=== PATIENT | male | born 1955 | race Caucasian/White ===

== ENCOUNTER → 2016-10-01 | Outpatient (CLI) | payer MEDICARE ==
[~2016-10-01] MED LIST: ALDACTONE 25MG25 M1 PO; AMBIEN CR 12.12.5 MG PO; AMBIEN10 MG PO; ANTIVERT 25MG25 MG PO; ANUSOL SUP1 SUPP.REC RC; ASPI325T6 PO; ASPIRIN 81M81 MG/TA2 PO; ASPIRIN E.C. 8181 MG PO; AUGMENTIN XR 101 TER PO; CORDARONE200 MG/TAB PO; COUMADIN 22.5 MG/TAB PO; COUMADIN 2MG2 MG/TAB PO; COUMADIN 3MG3 MG/TAB PO; COUMADIN 5MG5 MG/TAB PO; COUMADIN1 MG PO; COUMADIN3 MG PO; COUMADIN4 MG PO; COUMADIN5 MG PO; DIGOXIN0.125 MG PO; ENALAPRIL20 MG PO; FAMVIR 500500 MG/TAB PO; FUROSEMIDE; HUMALOG PEN100 U/ML SC; IMDUR 30MG30 MG/TAB PO; Imdur PO; KLOR-CON 1010 MEQ PO; LANTUS100 U/ML SC; LASIX 20MG TABL20 MG PO; LASIX 40MG TABL40 MG PO; LASIX20 MG PO; LEVAQUIN 5500 MG/TA1 PO; LEVEMIR100 U/ML SC; LIPITOR 40MG TA40 MG PO; MAGNESIUM250 M1 PO; METOLAZONE5 MG PO; METOPROLOL50 MG PO; NITROGLYCERIN0.4 MG SL; NOVOLIN R100 U/ML IJ; NOVOLOG FLEX100 U/ML SC; PACERONE200 MG PO; PREDNISONE20 MG PO; PRIL40 PO; PRILOSEC 20MG20 MG PO; PROAIR HFA0.09 MG/AC IH; ROCEPHIN 2GM VIAL21 IV; RT SPIRIVA18 MCG IH; SPIRIVA18 MCG IH; TOPROL XL 50MG50 MG PO; TOPROL XL100 MG PO; ULORIC40 MG PO; ULORIC80 MG PO; VASOTEC 10M10 MG/TAB PO; VASOTEC 5MG5 MG/TAB PO; VIAGRA100 MG PO; WARFARIN SOD5 MG PO; XANAX .25M0.25 MG/TA PO; ZAROXOLYN5 MG PO; ZETIA 10MG TAB10 MG PO; ZITHROMAX500 M2 PO; ZOCOR 40MG40 MG PO; ZOCOR40 MG PO; ZOLPIDEM10 MG PO
== END ==
LOC: COL.RAD 08:43
DX: I51.7 Cardiomegaly (principal); I48.2 Chronic atrial fibrillation

== ENCOUNTER 2017-08-14 09:57 | Observation (INO) | payer MEDICARE ==
[~2017-08-14] VITALS: Ht 180.3 cm; Wt 118.0 kg
[2017-08-14 10:54] LABS: BASO % 0.7 % (0.0-2.0); EOS # 0.1 (0.0-0.7); EOS % 1.1 % (0-4.0); GRAN # 3.2 (1.4-6.5); GRAN % 69.3 % (42.2-75.2); HEMATOCRIT 45.5 % (42.0-52.0); HEMOGLOBIN 15.1 g/dl (13.5-18.0); LYMPH # 0.7 (1.2-3.4); LYMPH % 14.8 % (20.0-51.0); MEAN CELL VOLUME 91 fl (80.0-100.0); MEAN CORPUSCULAR HEMOGLOBIN 30 pg (27.0-31.0); MEAN CORPUSCULAR HGB CONC 33 g/dl (33.0-37.0); MEAN PLATELET VOLUME 11.1 fl (7.4-10.4); MONO # 0.6 (0.1-0.6); MONO % 13.9 % (1.7-9.3); PLATELET COUNT 101 K/mm3 (130-400); REDCELL DISTRIBUTION WIDTH-CV 15.9 % (11.5-14.5)
[2017-08-14 10:57] LABS: INFLUENZA A NEGATIVE; INFLUENZA B NEGATIVE
[2017-08-14 11:05] LABS: CREATININE, serum 1.49 mg/dL (0.66-1.25); POTASSIUM 3.3 mmol/L (3.4-5.0); TOTAL PROTEIN 6.9 gm/dL (6.4-8.2)
[2017-08-14 11:29] LABS: TROPONIN-I 0.044 ng/mL (0.000-0.034)
[2017-08-14 11:43] LABS: INR 2.1 (0.8-3.0); PROTHROMBIN TIME 24.1 SECONDS (9.7-12.8)
[2017-08-14 15:54] VITALS: BP 124/77; PULSE 60; TEMP 98.2
[2017-08-14 16:02] VITALS: BP 124/77; PULSE 60; TEMP 98.2
[2017-08-14 18:57] VITALS: BP 12/77; PULSE 61; TEMP 97.7
[2017-08-15 04:20] VITALS: BP 124/55; PULSE 95; TEMP 98
[2017-08-15 06:59] LABS: BASO % 0.5 % (0.0-2.0); EOS # 0.1 (0.0-0.7); GRAN # 2.4 (1.4-6.5); GRAN % 58.5 % (42.2-75.2); HEMATOCRIT 43.2 % (42.0-52.0); HEMOGLOBIN 14.1 g/dl (13.5-18.0); LYMPH # 1.1 (1.2-3.4); LYMPH % 27.8 % (20.0-51.0); MEAN CELL VOLUME 92 fl (80.0-100.0); MEAN CORPUSCULAR HEMOGLOBIN 30 pg (27.0-31.0); MEAN CORPUSCULAR HGB CONC 33 g/dl (33.0-37.0); MEAN PLATELET VOLUME 11.3 fl (7.4-10.4); MONO # 0.5 (0.1-0.6); PLATELET COUNT 90 K/mm3 (130-400); REDCELL DISTRIBUTION WIDTH-CV 15.7 % (11.5-14.5)
[2017-08-15 07:37] LABS: CALCIUM 8.6 mg/dL (8.4-10.2); CREATININE, serum 1.47 mg/dL (0.66-1.25)
[2017-08-15 08:00] VITALS: BP 99/50; PULSE 61; TEMP 97.6
[2017-08-15 08:01] LABS: POTASSIUM 2.8 mmol/L (3.4-5.0)
[2017-08-15] MEDS ORDERED: DOXYCYCLINE 10100 MG PO (09:49)
== END 2017-08-15 11:21 | disposition home or self-care (01) ==
LOC: COL.ER 09:57 → MEDICAL 12:11
PROVIDERS: Emergency Medicine; Physician Assistant
DX: I13.0 Hypertensive heart and chronic kidney disease with heart failure and stage 1 through stage 4 chronic kidney disease, or unspecified chronic kidney disease (principal); I50.23 Acute on chronic systolic (congestive) heart failure; J44.9 Chronic obstructive pulmonary disease, unspecified; E11.22 Type 2 diabetes mellitus with diabetic chronic kidney disease; N18.9 Chronic kidney disease, unspecified; Z79.4 Long term (current) use of insulin; J06.9 Acute upper respiratory infection, unspecified; I25.10 Atherosclerotic heart disease of native coronary artery without angina pectoris; Z95.5 Presence of coronary angioplasty implant and graft; F17.210 Nicotine dependence, cigarettes, uncomplicated; E87.6 Hypokalemia; I48.91 Unspecified atrial fibrillation; G47.33 Obstructive sleep apnea (adult) (pediatric); Z95.810 Presence of automatic (implantable) cardiac defibrillator; E78.5 Hyperlipidemia, unspecified; Z79.01 Long term (current) use of anticoagulants; Z79.82 Long term (current) use of aspirin
CPT/HCPCS: G0378; J1940

== ENCOUNTER 2018-12-14 20:43 | Observation (INO) | payer MEDICARE ==
[~2018-12-14] VITALS: Ht 182.9 cm; Wt 118.2 kg
[~2018-12-14 20:43] MED LIST changes: +DOXYCYCLINE 10100 MG PO
[2018-12-14 21:06] LABS: BASO # 0.1 (0.0-0.2); BASO % 0.6 % (0.0-2.0); EOS # 0.4 (0.0-0.7); EOS % 4.1 % (0-4.0); GRAN # 6.2 (1.4-6.5); GRAN % 59.7 % (42.2-75.2); HEMATOCRIT 47.6 % (42.0-52.0); LYMPH # 2.5 (1.2-3.4); LYMPH % 24.4 % (20.0-51.0); MEAN CELL VOLUME 92 fl (80.0-100.0); MEAN CORPUSCULAR HEMOGLOBIN 31 pg (27.0-31.0); MEAN CORPUSCULAR HGB CONC 34 g/dl (33.0-37.0); MEAN PLATELET VOLUME 10.6 fl (7.4-10.4); MONO # 1.1 (0.1-0.6); MONO % 10.8 % (1.7-9.3); PLATELET COUNT 145 K/mm3 (130-400); REDCELL DISTRIBUTION WIDTH-CV 15.1 % (11.5-14.5)
[2018-12-14 21:12] LABS: INR 2.5 (0.8-3.0); PROTHROMBIN TIME 28.2 SECONDS (9.7-12.8)
[2018-12-14 21:14] LABS: PARTIAL THROMBOPLASTIN TIME 44.5 SECONDS (26.0-37.0)
[2018-12-14 21:19] LABS: ALBUMIN 4.2 gm/dL (3.5-5.0); BILIRUBIN,TOTAL 1.1 mg/dL (0.0-1.0); CREATININE, serum 1.57 (0.66-1.25); MAGNESIUM 1.9 mg/dL (1.6-2.3); TOTAL PROTEIN 7.2 gm/dL (6.4-8.2)
[2018-12-14 21:23] LABS: POTASSIUM 2.9 mmol/L (3.4-5.0)
[2018-12-14 21:52] LABS: TROPONIN-I 0.046 ng/mL (0.000-0.035)
[2018-12-15] VITALS (15 sets, daily range): BP systolic 101–138; BP diastolic 62–89; PULSE 53–66; TEMP 97.8–98.6
--- NOTE | 2018-12-15 00:20 | NUR ---
Pt arrived to room 355, transferred via wheelchair by ED staff. Pt awake, a&o, cooperative c cares. INT patent. Tele in place. Pt oriented to room, unit policies et current POC. Questions invited et answered et pt verbalizes understanding. Denies needs at this time. Call light in reach, will continue c admit process.
[2018-12-15] MEDS ORDERED: ULORIC40 MG PO (01:42)
[2018-12-15] MEDS ORDERED: ZANTAC 300300 MG PO (01:52)
[2018-12-15 04:32] LABS: HEMOGLOBIN 14.4 g/dl (13.5-18.0); MEAN CELL VOLUME 92 fl (80.0-100.0); MEAN CORPUSCULAR HEMOGLOBIN 31 pg (27.0-31.0); MEAN CORPUSCULAR HGB CONC 34 g/dl (33.0-37.0); MEAN PLATELET VOLUME 10.3 fl (7.4-10.4); PLATELET COUNT 112 K/mm3 (130-400); RED BLOOD COUNT 4.69 M/mm3 (4.20-5.60); REDCELL DISTRIBUTION WIDTH-CV 15.3 % (11.5-14.5)
[2018-12-15 04:44] LABS: CALCIUM 8.7 mg/dL (8.4-10.2); CREATININE, serum 1.44 (0.66-1.25); POTASSIUM 3.5 mmol/L (3.4-5.0)
[2018-12-15 05:05] LABS: TROPONIN-I 0.106 ng/mL (0.000-0.035)
--- NOTE | 2018-12-15 09:30 | NUR ---
patient assessment complete. wheezing insp/exp noted in upper lobes. patient denies chest pain, SOB, numbness or tingling, no n/v. radial pulses strong bilaterally. RH IV is CDI, no fluids running. patient on room air. patient cooperative with cares. Patient has been NPO, will have lexiscan later this morning. No other needs at this time. Call light within reach.
--- NOTE | 2018-12-15 12:32 | NUR ---
patient down for lexiscan at this time.
--- NOTE | 2018-12-15 13:02 | NUR ---
SW student attended clinical rounding and met with the patient to discuss discharge planning. The patient lives in [place] by himself. The patient reports independence with ADLs and has a walker that he uses occasionally. The patients PCP is Dr. Toan Farris and he gets his medications from [facility] pharmacy. The patient reports no difficulties obtaining his medications. The patient does not have DPOA-HC in EMR and is not interested in completing one at this time. The patient plans to return home with support from his father upon discharge. No additional needs at this time.
--- NOTE | 2018-12-15 14:01 | NUR ---
patient back from [facility].
--- NOTE | 2018-12-15 16:00 | NUR ---
Patient down for procedure at this time
--- NOTE | 2018-12-15 16:42 | NUR ---
PLEASE SEE MERGE FOR ALL MEDICATION ADMINISTRATION TIMES, RASS ASSESSMENT DURING AND POST PROCEDURE.
--- NOTE | 2018-12-15 17:45 | NUR ---
PATIENT BACK UP TO ROOM FROM PROCEDURE.
--- NOTE | 2018-12-15 19:41 | NUR ---
Patient in room, tolerating PO after procedure. Patient had dinner. VSS, no other needs at this time. Report given to ROBYN Roberson.
--- NOTE | 2018-12-15 22:55 | NUR ---
Patient assessed around 2200. EKG QTC around 2130 showed QTC of 552. Called Dr. Sloan, order to call > 500. Order to give Sotalol as ordered. Medication given. Patient reported some mild pain to left shoulder/chest area. Dressing to site is CDI. Voices no other needs or concerns at this time. Requests PRN Dawsonien around 2300. In bed watching TV at this time. Call light is within reach.
[2018-12-16] VITALS (8 sets, daily range): BP systolic 106–135; BP diastolic 54–86; PULSE 58–64; TEMP 97.4–98.6
--- NOTE | 2018-12-16 04:02 | NUR ---
Patient has been resting in bed with eyes closed since around 2329. Patient had received PRN Ativan as requested. Did complain of pain earlier to left chest/shoulder area. Received order for PRN APAP, but not given so far, as patient has not had any furhter complaints and has been asleep each time he has been checked on by this nurse. Resting in bed with eyes closed at this time. Call light is within reach.
--- NOTE | 2018-12-16 06:32 | NUR ---
Patient given PRN APAP per orders as requested this morning for pain to left chest/shoulder area. Encouraged to not use left arm as much, and voiced understanding. Did not want ice this morning to site. Dressings to area is CDI. Blood sugar this morning was 127. QTC this morning 550. Patient voices no other needs or concerns at this time. Resting in bed with eyes closed at this time. Call light is within reach.
[2018-12-16 06:58] LABS: BASO # 0.1 (0.0-0.2); BASO % 0.7 % (0.0-2.0); EOS # 0.3 (0.0-0.7); GRAN # 5.8 (1.4-6.5); HEMATOCRIT 45.2 % (42.0-52.0); HEMOGLOBIN 14.8 g/dl (13.5-18.0); MEAN CELL VOLUME 93 fl (80.0-100.0); MEAN CORPUSCULAR HEMOGLOBIN 31 pg (27.0-31.0); MEAN CORPUSCULAR HGB CONC 33 g/dl (33.0-37.0); MEAN PLATELET VOLUME 10.9 fl (7.4-10.4); MONO % 11.9 % (1.7-9.3); PLATELET COUNT 121 K/mm3 (130-400); RED BLOOD COUNT 4.84 M/mm3 (4.20-5.60); REDCELL DISTRIBUTION WIDTH-CV 15.5 % (11.5-14.5)
[2018-12-16 07:17] LABS: CALCIUM 8.9 mg/dL (8.4-10.2); CREATININE, serum 1.43 (0.66-1.25); POTASSIUM 3.5 mmol/L (3.4-5.0)
--- NOTE | 2018-12-16 09:45 | NUR ---
Patient assessment complete. patient sitting in bed. Denies chest pain, palpitations, N/V, numbness or tingling. C/O some dizziness earlier when sitting in bed "reading the newspaper, looking out his peripheral". Patient has been ambulating the floor, denies dizzines or SOB. States left chest site from defib procedure is sore but not in pain. Site is CDI. IV RH is patent, no complications. Talked with Anastasia with Dr. Sloan to confirm giving Sotalol, QTc was 550. Anastasia gave the ok. Lung sounds clear at bases. Heart RRR. Denies other needs at this time.
--- NOTE | 2018-12-16 12:48 | NUR ---
Patient sitting on edge of bed playing cards, lunch ordered. Patient has ambulated around the floor. States a little dizziness when he first gets up but no other complaints while walking. Denies other needs at this time. Call light within reach.
--- NOTE | 2018-12-16 16:28 | NUR ---
Patient sitting in bed. Spoke with pharmacist about medications. Pharmacist came to this nurse to discuss their talk. This nurse checked vitals and got a set of orthos. Orthos: 135/85 (Supine), 120/83 (Sitting), 112/75 (Standing). Patient is expressing concerns of "dizziness and swimmy feeling". Patient states when he first sits up, he feels dizzy. patient has been walking the floor and states he feels some dizziness at first but then it goes away. Told the pharmacist he "didn't want to tell the nurse because he didn't want to have to be escorted to the bathroom every time". Patient expressing concern that it is the medication he is on. patient has anxiety in regards to being shocked again and "doesn't want that to happen". Talked with patient about importance of letting the nurses and doctors know how he is feeling. Patient room close to nursing station, will continue to monitor.
--- NOTE | 2018-12-16 16:35 | NUR ---
Spoke with Anastasia with Dr. qureshi. Expressed concerned about patients dizziness, she talked to Dr. qureshi. They recommend talking to hospitalist considering pressures have been stable and patient is paced. Put in order for EKG and increased OTc parameters to 570 from 500.
--- NOTE | 2018-12-16 20:52 | NUR ---
PT IN ROOM AMBULATING AND SITTING AT SIDE OF BED PLAYING CARDS. PT ADVISED THAT HE REACHED HIS LIMIT OF 1500 FLUID RESTRICTION. PT DENIES ANY PAIN OR DISCOMFORT. DRSG TO LEFT UPPER CHEST CDI. NO NEEDS AT THIS TIME. CALL LIGHT WITHIN REACH.
--- NOTE | 2018-12-17 01:21 | NUR ---
PT RESTING/SLEEPING IN BED WITH HOB ELEVATED TO 30 DEGREE ANGLE. PT ADVISED THAT HE HAD PAIN AT INCISION SITE OF LEFT UPPER CHEST AREA, BUT NO OTHER PAIN. PT GIVEN TYLENOL FOR PAIN 650 MG AND AMBIEN TO HELP HIM SLEEP. PT HAS NO FURTHER NEEDS CALL LIGHT WITHIN REACH. ALSO, PT IS CABALLERO THAT HE HAS REACHED HIS LIMIT ON HIS FLUID INTAKE.
[2018-12-17 03:50] VITALS: BP 113/76; PULSE 62; TEMP 97
--- NOTE | 2018-12-17 06:07 | NUR ---
PT SLEPT/RESTED MOST OF NIGHT. PT WAS UPSET BECAUSE PT REACHED LIMIT FOR FLUID RESTRICTION LAST NIGHT AT BEGINNING OF SHIFT AND COULD NOT GET ANY MORE TO DRINK. DID GIVE SMALL AMOUNT OF ICE CHIPS FOR PT. PT ALSO UPSET THAT HE WAS AWAKEN FOR ROUTINE MONITOR AND LABS. PT DENIES ANY PAIN OR DISCOMFORT, CALL LIGHT WITHIN REACH AND NO NEEDS AT THIS TIME.
[2018-12-17 06:43] LABS: CREATININE, serum 1.37 (0.66-1.25); POTASSIUM 3.5 mmol/L (3.4-5.0)
[2018-12-17 06:47] LABS: INR 2.7 (0.8-3.0); PROTHROMBIN TIME 30.3 SECONDS (9.7-12.8)
[2018-12-17 08:00] VITALS: BP 116/81; PULSE 59; TEMP 97.8
--- NOTE | 2018-12-17 08:45 | NUR ---
Patient assessment complete. Patient just returned to room from walking. Left lung segura clear, RUL diminished, bases clear. Heart RRR. Patient denies SOB, chest pain, numbness, tingling, headache or visual changes. Patient does complain of some dizziness, states it is a little better than yesterday. No edema noted. Bowel sounds present. Pulses strong bilaterally. Patient does have concerns about whether the Sotalol is causing the dizziness. Call light within reach. Denies other needs at this time.
[2018-12-17 12:22] VITALS: BP 114/73; PULSE 60; TEMP 97.6
[2018-12-17] MEDS ORDERED: CLEOCIN HCL300 MG PO (14:00)
[2018-12-17] MEDS ORDERED: BETAPACE 80MG80 MG PO (14:02)
[2018-12-17] MEDS ORDERED: TOPROL XL 50MG50 MG PO (14:02)
--- NOTE | 2018-12-17 16:39 | NUR ---
patient being discharged. discharge instructions discussed and reviewed. All questions answered. Patient is concerned about defib discharging again and potassium levels being low. Education provided, no other questions. Patient escorted out by harvinder Shah. RH IV discontinued, catheter intact, no complications.
== END 2018-12-17 17:15 | disposition home or self-care (01) ==
LOC: COL.ER 20:43 → MEDICAL 22:48
PROVIDERS: Emergency Medicine; Family Medicine; Physician Assistant; ADMIT Hospitalist
DX: I49.01 Ventricular fibrillation (principal); Z45.02 Encounter for adjustment and management of automatic implantable cardiac defibrillator; Z66 Do not resuscitate; I27.20 Pulmonary hypertension, unspecified; Z79.4 Long term (current) use of insulin; Z79.82 Long term (current) use of aspirin; Z79.899 Other long term (current) drug therapy; Z79.01 Long term (current) use of anticoagulants; Z95.5 Presence of coronary angioplasty implant and graft; I25.2 Old myocardial infarction; I13.0 Hypertensive heart and chronic kidney disease with heart failure and stage 1 through stage 4 chronic kidney disease, or unspecified chronic kidney disease; N18.2 Chronic kidney disease, stage 2 (mild); I50.9 Heart failure, unspecified; E11.22 Type 2 diabetes mellitus with diabetic chronic kidney disease; F17.210 Nicotine dependence, cigarettes, uncomplicated; I48.91 Unspecified atrial fibrillation; G47.30 Sleep apnea, unspecified; J43.9 Emphysema, unspecified; I48.2 Chronic atrial fibrillation; I25.5 Ischemic cardiomyopathy; I25.10 Atherosclerotic heart disease of native coronary artery without angina pectoris; M10.9 Gout, unspecified
CPT/HCPCS: 99232-AI; A9500; C1882; G0378; J1815; J1940; J2250; J2270; J2405; J2704; J2785; J3010; J3370; J3480; J7030; J7050

== ENCOUNTER 2019-03-10 18:05 | Inpatient (IN) | payer MEDICARE ==
[2019-03-10] VITALS (31 sets, daily range): BP systolic 103; BP diastolic 75; PULSE 70; TEMP 98.7; O2SAT 96–100
[~2019-03-10] VITALS: Ht 180.3 cm; Wt 118.3 kg
[~2019-03-10 18:05] MED LIST changes: +BETAPACE 80MG80 MG PO; +CLEOCIN HCL300 MG PO; +ZANTAC 300300 MG PO
[2019-03-10 19:02] LABS: BASO % 0.3 % (0.0-2.0); EOS % 0.2 % (0-4.0); GRAN # 10.2 (1.4-6.5); GRAN % 83.4 % (42.2-75.2); HEMATOCRIT 42.1 % (42.0-52.0); HEMOGLOBIN 14.2 g/dl (13.5-18.0); LYMPH # 0.5 (1.2-3.4); LYMPH % 4.2 % (20.0-51.0); MEAN CELL VOLUME 92 fl (80.0-100.0); MEAN CORPUSCULAR HEMOGLOBIN 31 pg (27.0-31.0); MEAN CORPUSCULAR HGB CONC 34 g/dl (33.0-37.0); MEAN PLATELET VOLUME 11.6 fl (7.4-10.4); MONO # 1.4 (0.1-0.6); MONO % 11.4 % (1.7-9.3); PLATELET COUNT 95 K/mm3 (130-400); RED BLOOD COUNT 4.57 M/mm3 (4.20-5.60)
[2019-03-10 19:03] LABS: ALBUMIN 3.8 gm/dL (3.5-5.0); BILIRUBIN,TOTAL 2.4 mg/dL (0.0-1.0); CALCIUM 8.7 mg/dL (8.4-10.2); CREATININE, serum 1.57 (0.66-1.25); POTASSIUM 3.8 mmol/L (3.4-5.0); TOTAL PROTEIN 6.9 gm/dL (6.4-8.2)
[2019-03-10 19:07] LABS: INR 1.8 (0.8-3.0); PROTHROMBIN TIME 21.2 SECONDS (9.7-12.8)
[2019-03-10 19:12] LABS: TROPONIN-I 0.031 ng/mL (0.000-0.035)
[2019-03-10 19:15] LABS: C-REACTIVE PROTEIN 19.7 mg/dL (0.0-0.9)
[2019-03-10 19:40] LABS: COLLECTION METHOD CLEAN CATCH
[2019-03-10 19:48] LABS: MUCOUS Present /lpf; PH 5 (5-8); SQUAMOUS EPITHELIAL 0-2 /hpf; URINE APPEARANCE Hazy; URINE BACTERIA None Seen /hpf; URINE BILIRUBIN Negative (NEGATIVE); URINE BLOOD 2+ (NEGATIVE); URINE COLOR Amber; URINE GLUCOSE Negative (NEGATIVE); URINE KETONE Negative (NEGATIVE); URINE LEUKOCYTE ESTERASE 2+ (NEGATIVE); URINE NITRATE Negative (NEGATIVE); URINE PROTEIN(semi-quant) 2+ (NEGATIVE); URINE UROBILINOGEN >=4.0 mg/dL (NEGATIVE)
[2019-03-10] MEDS ORDERED: ADMELOG SO100 UNIT/1 SQ (23:11)
[2019-03-10] MEDS ORDERED: BETAPACE 120MG120 MG PO (23:13)
[2019-03-10] MEDS ORDERED: MAGNESIUM250 M1 PO (23:15)
[2019-03-10] MEDS ORDERED: ZAROXOLYN5 MG PO (23:15)
[2019-03-11] VITALS (331 sets, daily range): BP systolic 102–126; BP diastolic 52–88; PULSE 80–90; TEMP 98–98.9; O2SAT 90–100
[2019-03-11 04:59] LABS: BASO % 0.4 % (0.0-2.0); EOS % 0.2 % (0-4.0); GRAN # 6.8 (1.4-6.5); HEMATOCRIT 40.8 % (42.0-52.0); HEMOGLOBIN 13.6 g/dl (13.5-18.0); LYMPH # 0.7 (1.2-3.4); MEAN CELL VOLUME 93 fl (80.0-100.0); MEAN CORPUSCULAR HEMOGLOBIN 31 pg (27.0-31.0); MEAN CORPUSCULAR HGB CONC 33 g/dl (33.0-37.0); MEAN PLATELET VOLUME 11.2 fl (7.4-10.4); MONO # 0.9 (0.1-0.6); PLATELET COUNT 79 K/mm3 (130-400); RED BLOOD COUNT 4.38 M/mm3 (4.20-5.60); REDCELL DISTRIBUTION WIDTH-CV 15.1 % (11.5-14.5)
[2019-03-11 05:05] LABS: INR 1.6 (0.8-3.0)
[2019-03-11 05:09] LABS: CALCIUM 8.2 mg/dL (8.4-10.2); CREATININE, serum 1.33 (0.66-1.25); POTASSIUM 3.5 mmol/L (3.4-5.0)
--- NOTE | 2019-03-11 07:20 | NUR ---
RECEIVED REPORT FROM ROBYN SABA.
--- NOTE | 2019-03-11 09:39 | NUR ---
SW met with the patient to discuss a discharge plan. The pt lives alone in [place]. The pt has a cane which he uses occasionally and reports independence with ADLs. The pt's PCP is Dr. Farris and pt receives his medications from [facility] with no difficulties. The pt does not have advanced directives in the EMR and was not interested in obtaining a DPOA-HC form. The pt plans to return home upon discharge and states he will drive himself home. BERONICA will continue to follow to assist with any discharge recommendations.
--- NOTE | 2019-03-11 12:39 | NUR ---
CALLED REPORT TO ROBYN HASSAN.
--- NOTE | 2019-03-11 13:45 | NUR ---
PATIENT TRANSFERRED TO MEDICAL ROOM 317. PATIENT AMBULATED TO THE BED. FLUIDS RESUMED AT 75 ML/HOUR. MADE CONTACT WITH RECEIVING NURSE, MO.
--- NOTE | 2019-03-11 20:30 | NUR ---
Initial shift assessment done- VSS, Tele on, sitting at the edge of the bed, had questions regarding his meds- answered, doesnt want a snack tonight- states not much of a appetite
--- NOTE | 2019-03-11 23:05 | NUR ---
Pt states he feels SOB, states he needs his Lasix-lung sounds decreased with fine crackles LLL, states he feels like his lungs are full of fluid-- B/P 115/80,80,24,96% on RA-- put on 2 L/nc at this time for comfort- Karely VILLAFANA called and orders obtained for Lasix IV catherine, also noted by Karely VILLAFANA that stool specimen Positive for c-diff- put on Contact precautions, and oral vancomycin
[2019-03-12 00:02] LABS: CALCIUM 8.7 mg/dL (8.4-10.2); CREATININE, serum 1.6 (0.66-1.25); MAGNESIUM 2.4 mg/dL (1.6-2.3)
--- NOTE | 2019-03-12 01:47 | NUR ---
Feels better- has had 650cc urine out since IV Lasix given, given Ambien per requests at this time- hoping to get some sleep, on Contact Isolation, on Potassium protocol- not needing replacement at this time
[2019-03-12 04:44] VITALS: BP 120/87; PULSE 79; TEMP 98.6
--- NOTE | 2019-03-12 06:24 | NUR ---
Did sleep for a few hours early this morning- sitting at edge of bed,, states feeling somewhat better-informed that his home dose of lasix will be started this morning- pt relieved. VSS
[2019-03-12 07:34] LABS: INR 1.6 (0.8-3.0); PROTHROMBIN TIME 19.4 SECONDS (9.7-12.8)
[2019-03-12 07:36] LABS: HEMATOCRIT 43.9 % (42.0-52.0); HEMOGLOBIN 14.5 g/dl (13.5-18.0); MEAN CELL VOLUME 94 fl (80.0-100.0); MEAN CORPUSCULAR HEMOGLOBIN 31 pg (27.0-31.0); MEAN CORPUSCULAR HGB CONC 33 g/dl (33.0-37.0); MEAN PLATELET VOLUME 11.3 fl (7.4-10.4); PLATELET COUNT 87 K/mm3 (130-400); RED BLOOD COUNT 4.69 M/mm3 (4.20-5.60)
[2019-03-12 07:41] LABS: ALBUMIN 3.8 gm/dL (3.5-5.0); BILIRUBIN,TOTAL 1.5 mg/dL (0.0-1.0); CALCIUM 8.7 mg/dL (8.4-10.2); CREATININE, serum 1.8 (0.66-1.25); POTASSIUM 4.2 mmol/L (3.4-5.0); TOTAL PROTEIN 6.9 gm/dL (6.4-8.2)
[2019-03-12 07:57] VITALS: BP 116/79; PULSE 86; TEMP 98.8
[2019-03-12 08:26] LABS: ANISOCYTOSIS 1+; LYMPHOCYTE 9 % (20.0-51.0); NEUTROPHILS 67 % (42.0-75.2); PLATELET ESTIMATE DECREASED (NORMAL)
--- NOTE | 2019-03-12 09:07 | NUR ---
Pt assessment complete. Pt sitting up on the side of the bed, he is A/O x3. His breathing is even and unlabored on RA. Pt reports occasional SOB, worse when lying flat or ambulating. Pt states his fluid is located more in his abdomen/trunk rather than legs this time making it hard to breathe. Pt reports some nausea this morning, refuses breakfast. Little to no stool production. Having decent UOP. Pt denies any further needs, call light within reach.
[2019-03-12 12:47] VITALS: BP 105/80; PULSE 80; TEMP 98.5
[2019-03-12 15:54] VITALS: BP 99/70; PULSE 80; TEMP 97.6
--- NOTE | 2019-03-12 18:48 | NUR ---
Pt had uneventful day. Reported mild pain to upper abdomen. No N/V. Stools were formed this am, but became loose through the day. POC discussed with patient who verbalizes understanding. Isolation precautions in place. Will continue to monitor.
[2019-03-12 19:27] VITALS: BP 109/79; PULSE 81; TEMP 98.1
--- NOTE | 2019-03-12 21:30 | NUR ---
PT RESTING IN BED A+OX4. REPORTS SLIGHT PAIN IN ABD- PRN TYLENOL GIVEN. SOME SOA. VSS. URINARY OUTPUT TO A MINIMUM. PT REPORTS "I FEEL FULL" LUNGS CLEAR X4. ABD SOUNDS AUDIBLE THROUGHOUT. HEART RRR. CONTACT PRECAUTIONS IN PLACE. IV FLUSHES WLL, NO REDNESS NO SWELLING. IV ANTIBIOTICS RUNNING AT THIS TIME. NO NEEDS AT THSI TIME. CALL LIGHT IN REACH
[2019-03-13] VITALS (7 sets, daily range): BP systolic 90–125; BP diastolic 59–87; PULSE 76–80; TEMP 97.5–98.9
--- NOTE | 2019-03-13 | NUR ---
PT 02 SATURATION 86%- PLACED PT ON 3L VIA NC O2 SAT 91%. CALLED FOR CPAP ORDER- RT PLACED PT ON. SAT STABLE NO OTHER NEEDS AT THSI TIME
[2019-03-13 08:13] LABS: BASO # 0.1 (0.0-0.2); BASO % 0.8 % (0.0-2.0); EOS % 0.1 % (0-4.0); GRAN # 5.4 (1.4-6.5); GRAN % 68.4 % (42.2-75.2); HEMATOCRIT 38.3 % (42.0-52.0); HEMOGLOBIN 12.8 g/dl (13.5-18.0); LYMPH # 1.1 (1.2-3.4); LYMPH % 13.4 % (20.0-51.0); MEAN CELL VOLUME 92 fl (80.0-100.0); MEAN CORPUSCULAR HEMOGLOBIN 31 pg (27.0-31.0); MEAN CORPUSCULAR HGB CONC 33 g/dl (33.0-37.0); MONO # 1.3 (0.1-0.6); MONO % 16.9 % (1.7-9.3); PLATELET COUNT 94 K/mm3 (130-400); RED BLOOD COUNT 4.15 M/mm3 (4.20-5.60); REDCELL DISTRIBUTION WIDTH-CV 14.9 % (11.5-14.5)
--- NOTE | 2019-03-13 08:30 | NUR ---
Assessment complete. Pt sitting up on side of bed, A&O x 4. Physical assessment unremarkable. Pt reports slight pain to left flank, 3 out of 10. IV abx infusing per orders through left wrist site without s/s of complications. Pt reports having loose stools x 2 already this morning. No further needs reported. Call light in reach.
[2019-03-13 08:39] LABS: ALBUMIN 3.4 gm/dL (3.5-5.0); BILIRUBIN,TOTAL 1.3 mg/dL (0.0-1.0); CALCIUM 8.3 mg/dL (8.4-10.2); CREATININE, serum 1.81 (0.66-1.25); POTASSIUM 3.5 mmol/L (3.4-5.0); TOTAL PROTEIN 6.2 gm/dL (6.4-8.2)
[2019-03-13 08:48] LABS: PROTHROMBIN TIME 23.9 SECONDS (9.7-12.8)
--- NOTE | 2019-03-13 18:00 | NUR ---
Pt sitting up on side of bed, denies needs at this time. Pt has had frequent loose stools throughout the shift, reports trace amounts of blood when wiping, hemhorroids reported. No other c/o. Call light in reach.
--- NOTE | 2019-03-13 21:56 | NUR ---
PT RESTING IN BED A+OX4. REPORTS NO PAIN. DIARREHEA REPORTED. HEMORROIDS NOTED- WARM CLOTHES OFFERED. IV TO THE LEFT FA FLUSHES WELL, NO REDNESS, NO SWELLING. CONTACT PRECAUTIONS IN PLACE. ABD DISTENED AND BRUISED. NO NEEDS AT THIS TIME. CALL LIGHT IN REACH
[2019-03-14 03:57] VITALS: BP 122/92; PULSE 79; TEMP 97.5
--- NOTE | 2019-03-14 06:42 | NUR ---
PT HAD AN UNEVENTFUL NIGHT. REPORTS NO PAIN. DIARREHEA THROUGHOUT NIGHT. IV TO THE RIGHT FA FLUSHES WELL, ZOSYN RUNNING AT THIS TIME. NO NAUSEA. ABD DISTENDED, BRUISING NOTED. LUNGS CLEAR. HEART RRR. NO NEEDS AT THIS TIME. CALL LIGHT IN REACH.
[2019-03-14 07:49] LABS: BASO # 0.1 (0.0-0.2); BASO % 0.7 % (0.0-2.0); EOS % 0.5 % (0-4.0); GRAN % 69.1 % (42.2-75.2); HEMATOCRIT 38.6 % (42.0-52.0); HEMOGLOBIN 12.8 g/dl (13.5-18.0); LYMPH # 1.2 (1.2-3.4); LYMPH % 13.8 % (20.0-51.0); MEAN CELL VOLUME 92 fl (80.0-100.0); MEAN CORPUSCULAR HEMOGLOBIN 30 pg (27.0-31.0); MEAN CORPUSCULAR HGB CONC 33 g/dl (33.0-37.0); MONO # 1.3 (0.1-0.6); MONO % 15.2 % (1.7-9.3); PLATELET COUNT 112 K/mm3 (130-400); RED BLOOD COUNT 4.21 M/mm3 (4.20-5.60); REDCELL DISTRIBUTION WIDTH-CV 14.8 % (11.5-14.5)
[2019-03-14 07:52] LABS: INR 2.6 (0.8-3.0); PROTHROMBIN TIME 31.2 SECONDS (9.7-12.8)
[2019-03-14 07:59] VITALS: BP 120/87; PULSE 80
--- NOTE | 2019-03-14 08:00 | NUR ---
Assessment complete. Pt sitting up on side of bed eating breakfast, A&O x 4. Physical assessment unremarkable. IV abx infusing per orders through left wrist site without s/s of complications. Pt denies pain at this time, reports having one loose stool this morning, "but feeling better." No further needs reported. Call light in reach.
[2019-03-14 08:14] LABS: ALBUMIN 3.3 gm/dL (3.5-5.0); BILIRUBIN,TOTAL 1.2 mg/dL (0.0-1.0); CALCIUM 8.2 mg/dL (8.4-10.2); CREATININE, serum 1.65 (0.66-1.25); POTASSIUM 3.5 mmol/L (3.4-5.0); TOTAL PROTEIN 6.2 gm/dL (6.4-8.2)
[2019-03-14 11:36] VITALS: BP 115/88; PULSE 79; TEMP 97.4
[2019-03-14 16:02] VITALS: BP 117/84; PULSE 80; TEMP 97.4
--- NOTE | 2019-03-14 17:00 | NUR ---
Pt ambulating in hallway with steady gait, pushing IV pole with abx infusing through left wrist site without s/s of complications. Pt reports frequency of loose stools has decreased throughout today. Call light in reach.
[2019-03-14 19:07] VITALS: BP 118/86; PULSE 81; TEMP 98.4
[2019-03-14 23:33] VITALS: BP 111/81; PULSE 79; TEMP 99.5
[2019-03-15 03:28] VITALS: BP 116/76; PULSE 79; TEMP 98.1
[2019-03-15 08:29] VITALS: BP 136/94; PULSE 79; TEMP 98.2
[2019-03-15 08:45] VITALS: BP 137/88; PULSE 60
--- NOTE | 2019-03-15 09:02 | NUR ---
Pt assessment complete. Pt sitting up on the bench upon entry. He is A/O x3. His breathing is even and unlabored on RA. Pt reports improvement in breathing on exertion. No pain this morning. Denies N/V. Pt denies diarrhea this morning, but reports one small loose stool overnight. POC discussed with patient who verbalizes understanding. No needs at this time. Call light within reach.
[2019-03-15] MEDS ORDERED: COUMADIN 3MG3 MG/TAB PO (09:18)
[2019-03-15] MEDS ORDERED: VASOTEC 5MG5 MG/TAB PO (09:27)
[2019-03-15] MEDS ORDERED: BACTRIM DS 8001 TAB PO (09:33)
[2019-03-15 10:57] VITALS: BP 126/79; PULSE 80; TEMP 97.2
[2019-03-15 11:26] VITALS: BP 122/89; PULSE 80; TEMP 97.7
--- NOTE | 2019-03-15 11:59 | NUR ---
BERONICA presented the IM form to the patient. The pt understood and signed the form. A copy was provided to the pt and the original was placed in the chart. SW provided a list of [email or web address]'s home health agencies to take home. Pt was not interested in going home with home health. There are no additional needs at this time.
--- NOTE | 2019-03-15 13:42 | NUR ---
Discharge instructions reviewed with patient. All questions answered at this time. IV dc'd, catheter tip intact. Pt walked out of facility at this time.
== END 2019-03-15 13:42 | disposition home or self-care (01) | DRG 872 ==
LOC: COL.ER 18:05 → ICU 20:55 → MEDICAL 03-11 14:14
PROVIDERS: Emergency Medicine; Nurse Practitioner Family; ADMIT Family Medicine
DX: A41.89 Other specified sepsis (principal); I13.0 Hypertensive heart and chronic kidney disease with heart failure and stage 1 through stage 4 chronic kidney disease, or unspecified chronic kidney disease; N12 Tubulo-interstitial nephritis, not specified as acute or chronic; I25.10 Atherosclerotic heart disease of native coronary artery without angina pectoris; Z66 Do not resuscitate; R65.20 Severe sepsis without septic shock; E78.5 Hyperlipidemia, unspecified; I48.91 Unspecified atrial fibrillation; N18.9 Chronic kidney disease, unspecified; E11.22 Type 2 diabetes mellitus with diabetic chronic kidney disease; M10.9 Gout, unspecified; J44.9 Chronic obstructive pulmonary disease, unspecified; I27.20 Pulmonary hypertension, unspecified; I95.9 Hypotension, unspecified; E87.70 Fluid overload, unspecified; B96.20 Unspecified Escherichia coli [E. coli] as the cause of diseases classified elsewhere; F17.210 Nicotine dependence, cigarettes, uncomplicated; K52.9 Noninfective gastroenteritis and colitis, unspecified; I50.9 Heart failure, unspecified; N40.0 Benign prostatic hyperplasia without lower urinary tract symptoms; D69.6 Thrombocytopenia, unspecified; I25.2 Old myocardial infarction; Z95.5 Presence of coronary angioplasty implant and graft; Z95.0 Presence of cardiac pacemaker; Z87.01 Personal history of pneumonia (recurrent); Z88.1 Allergy status to other antibiotic agents; Z79.01 Long term (current) use of anticoagulants; Z79.82 Long term (current) use of aspirin; Z79.4 Long term (current) use of insulin; Z88.8 Allergy status to other drugs, medicaments and biological substances; Z91.048 Other nonmedicinal substance allergy status
CPT/HCPCS: 99232-AI; 99233-AI; 99239; A4216; J0696; J1815; J1940; J2405; J2543; J7030

== ENCOUNTER 2019-03-19 22:31 | Emergency (ER) | payer MEDICARE, OTHER ==
[~2019-03-19] VITALS: Ht 180.3 cm; Wt 113.6 kg
[~2019-03-19 22:31] MED LIST changes: +ADMELOG SO100 UNIT/1 SQ; +BACTRIM DS 8001 TAB PO; +BETAPACE 120MG120 MG PO
[2019-03-19 22:36] VITALS: TEMP 96.6
[2019-03-19 23:17] LABS: COLLECTION METHOD IN
[2019-03-19 23:23] LABS: PH 7 (5-8); SQUAMOUS EPITHELIAL None Seen /hpf; URINE APPEARANCE Clear; URINE BACTERIA None Seen /hpf; URINE BILIRUBIN Negative (NEGATIVE); URINE BLOOD Negative (NEGATIVE); URINE COLOR Yellow; URINE GLUCOSE Negative (NEGATIVE); URINE KETONE Negative (NEGATIVE); URINE LEUKOCYTE ESTERASE Negative (NEGATIVE); URINE NITRATE Negative (NEGATIVE); URINE PROTEIN(semi-quant) Negative (NEGATIVE); URINE RBC 0-2 /hpf; URINE UROBILINOGEN Negative (NEGATIVE)
[2019-03-19 23:30] LABS: BASO % 0.4 % (0.0-2.0); EOS # 0.2 (0.0-0.7); EOS % 1.8 % (0-4.0); GRAN # 8.5 (1.4-6.5); GRAN % 78.5 % (42.2-75.2); HEMOGLOBIN 14.1 g/dl (13.5-18.0); LYMPH % 9.6 % (20.0-51.0); MEAN CELL VOLUME 93 fl (80.0-100.0); MEAN CORPUSCULAR HEMOGLOBIN 31 pg (27.0-31.0); MEAN CORPUSCULAR HGB CONC 33 g/dl (33.0-37.0); MEAN PLATELET VOLUME 9.9 fl (7.4-10.4); MONO # 0.9 (0.1-0.6); MONO % 8.4 % (1.7-9.3); PLATELET COUNT 202 K/mm3 (130-400); RED BLOOD COUNT 4.63 M/mm3 (4.20-5.60); REDCELL DISTRIBUTION WIDTH-CV 15.5 % (11.5-14.5)
[2019-03-19 23:36] LABS: INR 3.2 (0.8-3.0); PROTHROMBIN TIME 38.8 SECONDS (9.7-12.8)
[2019-03-19 23:39] LABS: BILIRUBIN,TOTAL 1.5 mg/dL (0.0-1.0); CALCIUM 9.4 mg/dL (8.4-10.2); CREATININE, serum 1.72 (0.66-1.25); POTASSIUM 4.3 mmol/L (3.4-5.0); TOTAL PROTEIN 7.2 gm/dL (6.4-8.2)
[2019-03-20 00:32] VITALS: BP 100/72; PULSE 80
== END 2019-03-20 00:42 | disposition home or self-care (01) ==
LOC: COL.ER 22:31
PROVIDERS: Emergency Medicine; Nurse Practitioner
DX: R33.9 Retention of urine, unspecified (principal); E11.9 Type 2 diabetes mellitus without complications; I25.10 Atherosclerotic heart disease of native coronary artery without angina pectoris; I50.9 Heart failure, unspecified; J44.9 Chronic obstructive pulmonary disease, unspecified; F17.210 Nicotine dependence, cigarettes, uncomplicated; Z95.5 Presence of coronary angioplasty implant and graft; Z86.73 Personal history of transient ischemic attack (TIA), and cerebral infarction without residual deficits; Z79.01 Long term (current) use of anticoagulants; Z79.82 Long term (current) use of aspirin; Z79.4 Long term (current) use of insulin

== ENCOUNTER 2019-03-30 23:12 | Emergency (ER) | payer MEDICARE ==
[~2019-03-30] VITALS: Ht 180.3 cm; Wt 109.1 kg
[2019-03-30 23:30] VITALS: TEMP 98.7
[2019-03-31 00:21] LABS: COLLECTION METHOD CATHETER
[2019-03-31 00:28] LABS: PH 6 (5-8); SQUAMOUS EPITHELIAL None Seen /hpf; URINE APPEARANCE Clear; URINE BACTERIA None Seen /hpf; URINE BILIRUBIN Negative (NEGATIVE); URINE BLOOD 3+ (NEGATIVE); URINE COLOR Yellow; URINE GLUCOSE Negative (NEGATIVE); URINE KETONE Negative (NEGATIVE); URINE LEUKOCYTE ESTERASE Negative (NEGATIVE); URINE NITRATE Negative (NEGATIVE); URINE PROTEIN(semi-quant) Negative (NEGATIVE); URINE RBC >50 /hpf; URINE UROBILINOGEN Negative (NEGATIVE)
[2019-03-31 00:41] LABS: BASO # 0.1 (0.0-0.2); BASO % 0.8 % (0.0-2.0); EOS # 0.1 (0.0-0.7); EOS % 2.4 % (0-4.0); GRAN # 3.8 (1.4-6.5); GRAN % 65.2 % (42.2-75.2); HEMATOCRIT 42.3 % (42.0-52.0); HEMOGLOBIN 13.9 g/dl (13.5-18.0); LYMPH # 1.1 (1.2-3.4); LYMPH % 19.2 % (20.0-51.0); MEAN CELL VOLUME 95 fl (80.0-100.0); MEAN CORPUSCULAR HEMOGLOBIN 31 pg (27.0-31.0); MEAN CORPUSCULAR HGB CONC 33 g/dl (33.0-37.0); MEAN PLATELET VOLUME 10.1 fl (7.4-10.4); MONO # 0.7 (0.1-0.6); MONO % 12.1 % (1.7-9.3); PLATELET COUNT 124 K/mm3 (130-400); RED BLOOD COUNT 4.47 M/mm3 (4.20-5.60); REDCELL DISTRIBUTION WIDTH-CV 15.3 % (11.5-14.5)
[2019-03-31 00:48] LABS: ALBUMIN 3.9 gm/dL (3.5-5.0); CREATININE, serum 1.07 (0.66-1.25); POTASSIUM 4.2 mmol/L (3.4-5.0); TOTAL PROTEIN 6.8 gm/dL (6.4-8.2)
[2019-03-31 01:12] VITALS: BP 130/90; PULSE 80
== END 2019-03-31 01:15 | disposition home or self-care (01) ==
LOC: COL.ER 23:12
PROVIDERS: Emergency Medicine
DX: R33.9 Retention of urine, unspecified (principal); I11.0 Hypertensive heart disease with heart failure; E78.5 Hyperlipidemia, unspecified; I50.9 Heart failure, unspecified; J44.9 Chronic obstructive pulmonary disease, unspecified; I25.10 Atherosclerotic heart disease of native coronary artery without angina pectoris; I12.9 Hypertensive chronic kidney disease with stage 1 through stage 4 chronic kidney disease, or unspecified chronic kidney disease; E11.22 Type 2 diabetes mellitus with diabetic chronic kidney disease; F17.210 Nicotine dependence, cigarettes, uncomplicated; N18.9 Chronic kidney disease, unspecified; Z79.01 Long term (current) use of anticoagulants; Z79.4 Long term (current) use of insulin; Z79.82 Long term (current) use of aspirin

== ENCOUNTER 2019-04-06 12:28 | Day surgery (SDC) | payer MEDICARE ==
[~2019-04-06] VITALS: Ht 180.3 cm; Wt 108.3 kg
[2019-04-06] MEDS ORDERED: HUMALOG PEN100 U/ML SQ (13:13)
[2019-04-06] MEDS ORDERED: COUMADIN4 MG PO (13:18)
[2019-04-06] MEDS ORDERED: VASOTEC 5MG5 MG/TAB PO (13:18)
[2019-04-06 13:22] VITALS: BP 127/89; PULSE 80; TEMP 97.8
--- NOTE | 2019-04-06 14:20 | NUR ---
Called Tato Rome CRNA at this time to notify that patient's BG reading is 111. Patient checked at home at 1200 and it was 130s. Patient took full 50 unit dose of Lantus this AM. No further orders received.
--- NOTE | 2019-04-06 14:25 | NUR ---
When asked patient suicide screening questions, he states that he has had thoughts "in the past" "due to health problems". When asked if he has felt suicidal in the past 3 months or if he has made any plans for self-harm in the last 3 months, his answer was no. Informed patient of hospital resources available to him if he feels like he needs or wants support in the future.
--- NOTE | 2019-04-06 14:39 | NUR ---
Patient to the OR at this time with ROBYN Herrera.
--- NOTE | 2019-04-06 14:46 | NUR ---
Patient's belonging bag x1 taken to PACU with ROBYN Rojas at this time.
[2019-04-06 15:36] VITALS: TEMP 98.2
[2019-04-06 15:55] VITALS: BP 114/86; PULSE 80
--- NOTE | 2019-04-06 15:55 | NUR ---
PATIENT TO BAY 6 PER BED ACCOMPANIED BY PACU STAFF. MONITORS APPLIED. VSS. PATIENT DENIES PAIN AND NAUSEA. IV INFUSING PER GRAVITY. DIANA INTACT WITH VERY LIGHT PINK URINE. PATIENT ALERT AND TALKING WITH STAFF.
[2019-04-06 16:00] VITALS: BP 124/89; PULSE 79
--- NOTE | 2019-04-06 16:00 | NUR ---
VSS. PATIENT EATS TOAST AND DRINKS JUICE WITHOUT PROBLEMS. PT DENIES DISCOMFORT AND PAIN. WATCHING TV. IV INFUSING WITHOUT PROBLEMS.
[2019-04-06 16:15] VITALS: BP 113/76; PULSE 80
--- NOTE | 2019-04-06 16:15 | NUR ---
VSS. PATIENT'S CATHETER CHANGED TO LEG BAG WITH STAT LOCK IN PLACE. IV FLUIDS DC'D. URINE CONTINUES VERY LIGHT PINK. AMOUNT 150CC. IV DC'D TIP INTACT. PRESSURE APPLIED AND COBAN APPLIED. QUESTIONS ANSWERED AND PATIENT VOICED UNDERSTANDING.
[2019-04-06 16:55] VITALS: BP 99/70; PULSE 80
--- NOTE | 2019-04-06 16:55 | NUR ---
PATIENT DRESSED AND WATCHING TV. DENIES DISCOMFORT AND NAUSEA. DENIES LIGHTHEADEDNESS/DIZZINESS. WAITING FOR DOCTOR TO COME VISIT HIM.
--- NOTE | 2019-04-06 17:02 | NUR ---
DR CAMPO IN ROOM TALKING WITH PATIENT AND PATIENT'S FATHER. DISCHARGE INSTRUCTIONS GIVEN VERBAL AND WRITTEN. PATIENT VOICES UNDERSTANDING. PATIENT TAKEN OUT PER W/C ACCOMPANIED BY AMBULATORY STAFF TO PRIVATE VECHILE.
== END 2019-04-06 17:14 | disposition home or self-care (01) ==
LOC: SDCO 12:28
DX: R31.0 Gross hematuria (principal); R33.9 Retention of urine, unspecified; I13.0 Hypertensive heart and chronic kidney disease with heart failure and stage 1 through stage 4 chronic kidney disease, or unspecified chronic kidney disease; I50.9 Heart failure, unspecified; N18.9 Chronic kidney disease, unspecified; E11.22 Type 2 diabetes mellitus with diabetic chronic kidney disease; K21.9 Gastro-esophageal reflux disease without esophagitis; Z79.4 Long term (current) use of insulin; I27.20 Pulmonary hypertension, unspecified; I25.2 Old myocardial infarction; I48.91 Unspecified atrial fibrillation; I25.10 Atherosclerotic heart disease of native coronary artery without angina pectoris; Z95.0 Presence of cardiac pacemaker; F17.210 Nicotine dependence, cigarettes, uncomplicated; J44.9 Chronic obstructive pulmonary disease, unspecified; Z79.82 Long term (current) use of aspirin; Z79.899 Other long term (current) drug therapy; Z87.448 Personal history of other diseases of urinary system
CPT/HCPCS: C1769; J0690; J1100; J2405; J2704; J3010; J7030; Q9967

== ENCOUNTER 2019-05-02 11:31 | Emergency (ER) | payer MEDICARE ==
[~2019-05-02 11:31] MED LIST changes: +HUMALOG PEN100 U/ML SQ
== END 2019-05-02 11:40 | disposition home or self-care (01) ==
LOC: COL.ER 11:31
DX: Z72.9 Problem related to lifestyle, unspecified (principal)

== ENCOUNTER 2019-05-05 08:46 | Day surgery (SDC) | payer MEDICARE ==
[~2019-05-05] VITALS: Ht 180.3 cm; Wt 111.5 kg
[2019-05-05] VITALS (12 sets, daily range): BP systolic 93–114; BP diastolic 59–75; PULSE 78–81; TEMP 97.7–98
[2019-05-05 09:47] LABS: CREATININE, serum 1.42 (0.66-1.25)
--- NOTE | 2019-05-05 14:50 | NUR ---
Pt arrives to medical unit rm 310 from PACU via cart, awake and alert, denies pain at this time. Padron to DD with bright red blood and occasional large clots. IVF's infusing to left hand without s/s of complications. VSS. Call light in reach.
--- NOTE | 2019-05-05 16:34 | NUR ---
Padron catheter appears occluded with bright red blood, no flow to bag. Catheter bag disconnected and catheter irrigated with NS 60 ml. Large clot, approx 18 inches removed upon disconnecting catheter bag. Bright red, bloody urine flowing freely once irrigation complete and bag reconnected.
--- NOTE | 2019-05-05 19:00 | NUR ---
Patient request ambien for sleep. patient also continues to have large clots from alcantar with dark red blood. Spoke with Dr. Tereza gordillo to add home dose of patient ambien. Clarified order for LR due to patient heart failure. Per Dr. Larson start LR and monitor for signs of fluid overload. Patient needing to produce urine. Update later this evening regarding output/clotting.
--- NOTE | 2019-05-05 19:48 | NUR ---
Sitting at bedside. Assessment completed. Padron to dependent drainage with dark red blood/clot draining at this time. LR started. Patient educated to inform staff of shortness of breath or difficulty breathing. Will closely monitor.
--- NOTE | 2019-05-05 21:00 | NUR ---
Padron continues to drain dark red blood with clots. Will continue to monitor. LR infusing. Denies shortness of breath.
--- NOTE | 2019-05-05 21:19 | NUR ---
Spoke with Dr. Larson. Patient continues to have dark red blood with clotting. Not needing to irrigate at this time-clots assisted through alcantar tubing easily. Per Dr. Larson-no new orders at this time. Also patient diabetic, takes lantus and humalog at home. Blood sugar 267. Will hold home insulin at this time and monitor.
--- NOTE | 2019-05-05 22:09 | NUR ---
Dr. La in to irrigate alcantar. Placed in traction with 10cc increased in balloon at this time. Can change to 3 way with CBI if clots continue. Will closely monitor.
--- NOTE | 2019-05-05 23:28 | NUR ---
Patient continues to have large clots in alcantar and around tip of penis. x3 irrigation since seen by MD. Spoke with Dr. Larson. Melissa to place [address] and start CBI, and to contact nursing supervisior to help with placement.
--- NOTE | 2019-05-05 23:35 | NUR ---
Dr. Webb called. Made aware of continuing clots. Start [address] with CBI.
--- NOTE | 2019-05-05 23:50 | NUR ---
CBI placed at this time with [address] way [address]. Patient tolerated well. Will monitor.
[2019-05-06] VITALS (7 sets, daily range): BP systolic 108–126; BP diastolic 77–94; PULSE 79–84; TEMP 97.5–98.7
--- NOTE | 2019-05-06 | NUR ---
Patient reports wheezing. Assessed patient. Lungs clear. Wheezing in upper airways. Patient refused IV fluids to be continued at this time. IV fluids stopped. Will monitor.
--- NOTE | 2019-05-06 00:30 | NUR ---
Wheezing resolved with stop of IV fluids. Will continue to monitor.
--- NOTE | 2019-05-06 01:33 | NUR ---
CBI flowing well. Patient continues to have clots around tip of penis. Will continue to monitor.
--- NOTE | 2019-05-06 02:34 | NUR ---
CBI light pink at this time. Clots continue to pass from around alcantar at distal portion of penis. Will continue to monitor.
--- NOTE | 2019-05-06 04:45 | NUR ---
CBi light pink. Patient has clots from around alcantar catheter present. Periarea cleaned. Will continue to monitor.
--- NOTE | 2019-05-06 06:20 | NUR ---
Patient continued to have large clots and bright red blood from distal portion of penis. CDI flowing well without complications at this time. Resting in bed. Will continue to monitor.
--- NOTE | 2019-05-06 07:06 | NUR ---
Report given to ROBYN White
--- NOTE | 2019-05-06 07:55 | NUR ---
Pt awake and alert this morning, CBI draining dark pink currently, shift assessments complete, left Pt call light in reach, bed in lowest position.
--- NOTE | 2019-05-06 10:04 | NUR ---
Report given by outgoing nurse RN Kimmy at [id number]
--- NOTE | 2019-05-06 10:54 | NUR ---
SW met with the patient, patient's father (Lenin ph#[phone]), and sister (Araseli ph#[phone]) to discuss discharge plan. The patient lives alone in [place]. He states that his father lives in [facility] and that his sister lives in [place]. He reports independence with ADLs and has a cane. The patient's PCP is Dr. Toan Farris and he receives his medications at the [facility]. He reports no difficulties obtaining his meds. The patient does not have advanced directives and he was not interested in completing them at this time. The patient plans to return back home upon discharge. No additional needs at this time.
--- NOTE | 2019-05-06 13:51 | NUR ---
This nurse reported off to ROBYN White
--- NOTE | 2019-05-06 13:58 | NUR ---
Primary nurse was assisted by [id number] patient care by [employer] student Alcira Almonte and [employer] instructor Sherine Huerta RN-.
--- NOTE | 2019-05-06 19:26 | NUR ---
Pt in room today, CBI drainig light pink most of the day, when Pt ambulates CBI turns darker, some C/O discomfort / pain R/T the alcantar. VS have been stable.
--- NOTE | 2019-05-06 19:31 | NUR ---
Report received from ROBYN White. Patient Padron clotted. Irrigated at this time. Pericare provided. CBI resumed. Denies other needs. Call light in reach.
--- NOTE | 2019-05-06 20:25 | NUR ---
Sitting at bedside. Assessment complete. Lungs clear. Heart sounds normal. Bowels active x4. Pulses present throughout. Bilateral lower legs purple in color. Patient legs dangling off side of bed. Patient reports anxiety-resolved with positive feedback and decreased room temp. Denies pain. Denies needs at this time. CBI irrigated. Flowing with pinkish drainage at this time. Will continue to monitor.
--- NOTE | 2019-05-06 22:15 | NUR ---
Patient reports wheezing. Spoke with Dr. Del Valle for PRN alireza. Okay to add order. Respiratory notified.
--- NOTE | 2019-05-07 00:02 | NUR ---
CBI draining without difficulty. Patient denies needs. Call light in reach.
[2019-05-07 03:09] VITALS: BP 103/77; PULSE 79; TEMP 98.9
--- NOTE | 2019-05-07 03:53 | NUR ---
CBI draining pink drainage. No clots present at this time. Patient continues to leak blood from distal portion of penis around alcantar. Cares provided. Will continue to monitor.
--- NOTE | 2019-05-07 06:15 | NUR ---
CBI continued with pink tinge throughout night. Patient continues to have bleeding from around alcantar at distal portion of penis. Cares provided. Gown and linens changed this AM. Denies needs. Call light in reach.
--- NOTE | 2019-05-07 07:29 | NUR ---
CBI continued, drained collection bag, running light pink.
--- NOTE | 2019-05-07 07:40 | NUR ---
patient c/o being dizzy and feeling bloated. Guest stated he has been getting dizzy for some time and this was nothing new this nurse told patient she would ask about getting something for the constipation but explained it is nomral to be constipated after surgery. Patient acknowledged he understood
[2019-05-07 07:46] VITALS: BP 113/88; PULSE 80; TEMP 97.8
--- NOTE | 2019-05-07 08:42 | NUR ---
CBI catheter plugged with clots, back flushed with sterile water, flow resumed.
--- NOTE | 2019-05-07 08:47 | NUR ---
Pt sitting at side of bed, shift assessments complete, left Pt call light in reach.
--- NOTE | 2019-05-07 10:54 | NUR ---
CBI catheter removed, catheter intact, Pt tolerated procedure well.
--- NOTE | 2019-05-07 11:23 | NUR ---
First visit from the jointer machine. No needs right now.
[2019-05-07 12:04] VITALS: BP 116/80; PULSE 81; TEMP 97.8
--- NOTE | 2019-05-07 13:47 | NUR ---
Guest is resting comfortably in bed. Call light is within reach. This nurse reoported off to nurse Christopher RN
--- NOTE | 2019-05-07 13:55 | NUR ---
Primary nurse was assisted with [id number] [employer] student Alcira Almonte and [employer] [facility] [employer] instructor Sherine Huerta RN-BC.
--- NOTE | 2019-05-07 18:00 | NUR ---
Pt's nurse was busy in another room so this nurse gave discharge instructions and education on pt diagnosis, medications, and S/Sx when to call the doctor or go to ER. Pt wanted to take Lasix when he got home for evening dose. Pt Iv discontinued and tip intact no redness or infiltration noted. Pt escorted out via wheelchair by aide without issue and his family at his side.
[2019-05-08] MEDS ORDERED: LASIX 40MG TABL40 MG PO (05:04)
== END 2019-05-07 17:00 | disposition home or self-care (01) ==
LOC: SDCO 08:46 → MEDICAL 14:57 → SDCO 05-07 17:00
PROVIDERS: Registered Nurse
DX: N40.0 Benign prostatic hyperplasia without lower urinary tract symptoms (principal); J44.9 Chronic obstructive pulmonary disease, unspecified; I27.20 Pulmonary hypertension, unspecified; I25.10 Atherosclerotic heart disease of native coronary artery without angina pectoris; E11.22 Type 2 diabetes mellitus with diabetic chronic kidney disease; I13.0 Hypertensive heart and chronic kidney disease with heart failure and stage 1 through stage 4 chronic kidney disease, or unspecified chronic kidney disease; I42.9 Cardiomyopathy, unspecified; I25.2 Old myocardial infarction; N18.9 Chronic kidney disease, unspecified; Z79.4 Long term (current) use of insulin; I50.9 Heart failure, unspecified; Z95.810 Presence of automatic (implantable) cardiac defibrillator; I48.2 Chronic atrial fibrillation; Z79.01 Long term (current) use of anticoagulants; F17.210 Nicotine dependence, cigarettes, uncomplicated; G47.33 Obstructive sleep apnea (adult) (pediatric); Z95.5 Presence of coronary angioplasty implant and graft; Z79.899 Other long term (current) drug therapy; Z79.82 Long term (current) use of aspirin; I34.0 Nonrheumatic mitral (valve) insufficiency; Z87.01 Personal history of pneumonia (recurrent)
CPT/HCPCS: OP; J0690; J1100; J1815; J1885; J2370; J2405; J2704; J3010; J7030; J7120

== ENCOUNTER 2019-05-07 21:31 | Observation (INO) | payer MEDICARE, OTHER ==
[~2019-05-07] VITALS: Ht 180.3 cm; Wt 107.6 kg
[2019-05-08] VITALS (116 sets, daily range): BP systolic 97–141; BP diastolic 62–107; PULSE 80–83; TEMP 97.9–98.7; O2SAT 91–100
[2019-05-08 00:35] LABS: COLLECTION METHOD IN
[2019-05-08 00:45] LABS: INR 1.7 (0.8-3.0); PROTHROMBIN TIME 19.8 SECONDS (9.7-12.8)
[2019-05-08 00:47] LABS: HEMATOCRIT 38.2 % (42.0-52.0); HEMOGLOBIN 12.9 g/dl (13.5-18.0); MEAN CELL VOLUME 93 fl (80.0-100.0); MEAN CORPUSCULAR HEMOGLOBIN 32 pg (27.0-31.0); MEAN CORPUSCULAR HGB CONC 34 g/dl (33.0-37.0); PLATELET COUNT 139 K/mm3 (130-400); REDCELL DISTRIBUTION WIDTH-CV 15.2 % (11.5-14.5)
[2019-05-08 00:56] LABS: CALCIUM 8.7 mg/dL (8.4-10.2); CREATININE, serum 1.36 (0.66-1.25); POTASSIUM 3.9 mmol/L (3.4-5.0)
[2019-05-08 01:10] LABS: PH 6 (5-8); SQUAMOUS EPITHELIAL None Seen /hpf; URINE APPEARANCE Hazy; URINE BACTERIA None Seen /hpf; URINE BILIRUBIN Negative (NEGATIVE); URINE BLOOD 3+ (NEGATIVE); URINE COLOR Amber; URINE GLUCOSE Negative (NEGATIVE); URINE KETONE Negative (NEGATIVE); URINE LEUKOCYTE ESTERASE Negative (NEGATIVE); URINE NITRATE Negative (NEGATIVE); URINE PROTEIN(semi-quant) 2+ (NEGATIVE); URINE RBC 0-2 /hpf; URINE UROBILINOGEN Negative (NEGATIVE)
[2019-05-08 01:20] LABS: ANISOCYTOSIS 1+; LYMPHOCYTE 11 % (20.0-51.0); MYELOCYTE 1 % (0-0); NEUTROPHILS 78 % (42.0-75.2); PLATELET ESTIMATE NORMAL (NORMAL)
--- NOTE | 2019-05-08 04:19 | NUR ---
Arrived to the unit via stretcher; alert and oriented. Attached to all monitors. Assessment complete.
[2019-05-08] MEDS ORDERED: LASIX 40MG TABL40 MG PO (05:04)
--- NOTE | 2019-05-08 06:05 | NUR ---
Patient reporting central chest pain which is described as pressure and rates it a 3/10. Reports that he does occasionally have chest pain and this is the same type of pain that he sometimes gets. Pain is sometimes associated with anxiety and patient feels this may be anxiety related. Reporting some mild shortness of breath which is also sometimes associated with his anxiety. Dr. Webb notfied; will get troponin at this time.
--- NOTE | 2019-05-08 07:48 | NUR ---
Pt AAOx4 sitting on edge of bed, CBI infusing and urine draining steadily through tubing into drainage bag attached to bed. Pt states "I just dont feel good, I feel sick, my bladder feels like is full, and also having pressure type pain in my stomach". Bowel sounds present, pt states "I havent eaten since I dont know when, I could eat, but want to start slow". Low sodium chicken broth provided - tolerated well. Call light in reach. Educated to call if need to get out of bed
--- NOTE | 2019-05-08 12:12 | NUR ---
Chaplain henry and offered support with patient.
--- NOTE | 2019-05-08 14:08 | NUR ---
Report phoned to ROBYN Slater
--- NOTE | 2019-05-08 14:20 | NUR ---
Patient up to room 347 by wheelchair. Alert and oriented x 3. Assessment complete. Father at bedside. CBI infusing at slow rate, urine yellow and clear. Denies pain at this time. Oriented to room. Denies further needs at this time.
--- NOTE | 2019-05-08 18:06 | NUR ---
Patient has done well this afternoon, CBI continues to infuse at slow rate. Clear peach urine present. Cath care provided. Denies pain at this time. Patient independent in room. Denies further needs at this time. Will report off to night auditor.
--- NOTE | 2019-05-09 03:55 | NUR ---
Patient resting quietly in room. Patient urine a clear, light tea color. No clots noted in alcantar or tubing. Call light within reach, will continue to monitor
[2019-05-09 04:00] VITALS: BP 97/65; PULSE 80; TEMP 98.9
[2019-05-09 07:09] LABS: BASO # 0.1 (0.0-0.2); BASO % 0.5 % (0.0-2.0); EOS # 0.1 (0.0-0.7); EOS % 0.5 % (0-4.0); GRAN # 7.7 (1.4-6.5); GRAN % 75.4 % (42.2-75.2); HEMATOCRIT 39.3 % (42.0-52.0); HEMOGLOBIN 12.9 g/dl (13.5-18.0); LYMPH # 1.3 (1.2-3.4); LYMPH % 12.4 % (20.0-51.0); MEAN CELL VOLUME 93 fl (80.0-100.0); MEAN CORPUSCULAR HEMOGLOBIN 31 pg (27.0-31.0); MEAN CORPUSCULAR HGB CONC 33 g/dl (33.0-37.0); MEAN PLATELET VOLUME 11.4 fl (7.4-10.4); MONO # 1.1 (0.1-0.6); MONO % 10.8 % (1.7-9.3); PLATELET COUNT 120 K/mm3 (130-400); RED BLOOD COUNT 4.21 M/mm3 (4.20-5.60)
[2019-05-09 07:13] LABS: INR 1.4 (0.8-3.0); PROTHROMBIN TIME 16.2 SECONDS (9.7-12.8)
[2019-05-09 07:14] LABS: ALBUMIN 3.9 gm/dL (3.5-5.0); BILIRUBIN,TOTAL 2.8 mg/dL (0.0-1.0); CREATININE, serum 1.24 (0.66-1.25); TOTAL PROTEIN 6.8 gm/dL (6.4-8.2)
[2019-05-09 08:15] VITALS: BP 108/77; PULSE 80; TEMP 98
--- NOTE | 2019-05-09 09:00 | NUR ---
Ambulatory in room independently. Complained of lower back pain. CBI infusing slowly. Dione urine with occasional small clot per alcantar catheter.
--- NOTE | 2019-05-09 10:10 | NUR ---
Patient lives at home along in [place], [place] and plans to return home upon recovery. Patient's father (Lenin Cui [phone]) is supportive of the patient as needed. Patient is independent with daily living activities and patient had a laser ablation to his prostate on 05/05/19. 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 Patient has a pacemaker and uses a CPAP machine, his primarcy care physician is Dr. Toan Farris and also receives medical care from Dr. Lane Sloan, and his pharamcy is [facility] ([place]). Patient does not have advance directives completed however, he is a DNR. No further needs and manager social responsibility will follow as needed.
--- NOTE | 2019-05-09 11:30 | NUR ---
Hospitalist saw patient. Tylenol given for c/o back pain.
[2019-05-09 11:59] VITALS: BP 91/64; PULSE 80; TEMP 98.4
[2019-05-09 16:15] VITALS: BP 118/78; PULSE 80
--- NOTE | 2019-05-09 16:30 | NUR ---
Dr. Webb saw patient. CBI port capped on catheter. Leg bag and urinary supplies given for home use. Verbalized understanding of catheter care. Dismissed to home.
== END 2019-05-09 16:30 | disposition home or self-care (01) ==
LOC: COL.ER 21:31 → ICU 05-08 02:58 → SURG 05-08 14:13
PROVIDERS: Emergency Medicine; Student in an Organized Health Care Education/Training Program; ADMIT Urology
DX: R33.9 Retention of urine, unspecified (principal); R33.8 Other retention of urine; E78.5 Hyperlipidemia, unspecified; I25.10 Atherosclerotic heart disease of native coronary artery without angina pectoris; Z95.5 Presence of coronary angioplasty implant and graft; I13.0 Hypertensive heart and chronic kidney disease with heart failure and stage 1 through stage 4 chronic kidney disease, or unspecified chronic kidney disease; I50.9 Heart failure, unspecified; N18.9 Chronic kidney disease, unspecified; E11.22 Type 2 diabetes mellitus with diabetic chronic kidney disease; Z79.4 Long term (current) use of insulin; Z79.82 Long term (current) use of aspirin; I48.91 Unspecified atrial fibrillation; G47.33 Obstructive sleep apnea (adult) (pediatric); Z95.810 Presence of automatic (implantable) cardiac defibrillator; Z79.899 Other long term (current) drug therapy
CPT/HCPCS: 99222; 99231-AI; G0378

== ENCOUNTER → 2020-04-06 | Outpatient (CLI) | payer MEDICARE | LOC: COL.RAD | DX: M17.12 Unilateral primary osteoarthritis, left knee (principal) ==

== ENCOUNTER → 2020-12-19 | Outpatient (CLI) | payer MEDICARE | LOC: COL.RAD 10:30 | DX: N40.0 Benign prostatic hyperplasia without lower urinary tract symptoms (principal); R31.0 Gross hematuria ==

== ENCOUNTER 2023-05-13 14:51 | Observation (INO) | payer MEDICARE ==
[~2023-05-13] VITALS: Ht 180.3 cm; Wt 114.4 kg
[~2023-05-13 14:51] MED LIST changes: +K-DUR20 MEQ PO; -KLOR-CON 1010 MEQ PO; -LASIX 20MG TABL20 MG PO; +PREDNISONE50 MG PO
[2023-05-13 16:12] LABS: COLLECTION METHOD CLEAN CATCH
[2023-05-13 16:25] LABS: URINE APPEARANCE Turbid (CLEAR/HAZY); URINE BLOOD 3+ (NEGATIVE); URINE COLOR Red (YELLOW); URINE GLUCOSE TRACE (NEGATIVE); URINE KETONE Negative (NEGATIVE); URINE NITRATE Negative (NEGATIVE); URINE PROTEIN(semi-quant) 3+ (NEGATIVE); URINE RBC >50 /hpf (0-2); URINE UROBILINOGEN 0.2 E.U/dL (0.2-1.0)
[2023-05-13 17:49] LABS: BASO # 0.1 K/mm3 (0.0-0.2); BASO % 0.6 % (0.0-2.0); EOS # 0.2 K/mm3 (0.0-0.7); EOS % 2.5 % (0.0-4.0); GRAN # 6.2 K/mm3 (1.4-6.5); GRAN % 72.1 % (42.2-75.2); HEMATOCRIT 41.8 % (42.0-52.0); HEMOGLOBIN 14.6 g/dl (13.5-18.0); LYMPH # 1.1 K/mm3 (1.2-3.4); LYMPH % 13.1 % (20.0-51.0); MEAN CELL VOLUME 90 fl (80.0-100.0); MEAN CORPUSCULAR HEMOGLOBIN 31 pg (27-31); MEAN CORPUSCULAR HGB CONC 35 g/dl (33.0-37.0); MEAN PLATELET VOLUME 10.6 fl (7.4-10.4); MONO % 11.2 % (1.7-9.3); PLATELET COUNT 129 K/mm3 (130-400); RED BLOOD COUNT 4.65 M/mm3 (4.20-5.60); REDCELL DISTRIBUTION WIDTH-CV 14.7 % (11.5-14.5)
[2023-05-13 17:54] LABS: INR 2.7 (0.8-3.0); PROTHROMBIN TIME 29.3 SECONDS (9.7-12.8)
[2023-05-13 18:05] LABS: BILIRUBIN,TOTAL 1.6 mg/dL (0.2-1.2); CALCIUM 9.7 mg/dL (8.4-10.2); CREATININE, serum 1.52 mg/dL (0.72-1.25); POTASSIUM 3.5 mmol/L (3.5-4.5)
[2023-05-13 18:06] LABS: SQUAMOUS EPITHELIAL None Seen /hpf (0-10)
[2023-05-13 22:10] VITALS: BP 109/61; PULSE 60; TEMP 97.4
--- NOTE | 2023-05-13 22:10 | NUR ---
PATIENT IS A&O. VSS. NOTED IRREGULAR HR IN THE 60'S ON TELE. HX OF A-FIB & CHF. 02 @ 2L PER NC WITH SATS IN MID TO UPPER 90'S. PATIENT IS ALSO A SMOKER WITH COPD, APNEA AND WEARS A C-PAP AT HS. PATIENT IS HUNGRY, TOLERATING ADA DIET. BS OF 134. HS MEDS GIVEN. IV FLUIDS INFUSING VIA PUMP INTO LEFT AC IV. DIANA TO DD WITH CBI INFUSING AT MOD TO FAST RATE, URINE IS REDDISH WITH SEDIMENT NOTED. PACU REPORTS PATIENT HAD A LOOSE BM. HEAD TO TOE ASSESSMENT COMPLETE. SCD'S TO BLE. ORIENTED TO ROOM. CALL LIGHT IN REACH.
[2023-05-13 22:25] VITALS: BP 116/70; PULSE 64
[2023-05-13 22:40] VITALS: BP 120/75; PULSE 60; TEMP 97.7
[2023-05-13 22:55] VITALS: BP 116/69; PULSE 60
[2023-05-13 23:55] VITALS: BP 98/52; PULSE 59
[2023-05-14] VITALS (18 sets, daily range): BP systolic 97–146; BP diastolic 52–93; PULSE 55–63; TEMP 97.6–98.4
[2023-05-14] MEDS ORDERED: VENTOLIN0.09 MG IH (05:23)
[2023-05-14] MEDS ORDERED: BASAGLAR K100 UNIT/1 SQ (05:23)
[2023-05-14] MEDS ORDERED: K-DUR20 MEQ PO (05:24)
[2023-05-14] MEDS ORDERED: HUMALOG TE100 UNIT/1 SQ (05:28)
[2023-05-14] MEDS ORDERED: BETAPACE240 MG PO (05:32)
[2023-05-14] MEDS ORDERED: MULTI VITAMINS1 TAB PO (05:46)
[2023-05-14 09:11] LABS: INR 2.1 (0.8-3.0); PROTHROMBIN TIME 22.5 SECONDS (9.7-12.8)
--- NOTE | 2023-05-14 10:35 | NUR ---
Initial visit; Patient thanked Transit Proof Machine Operator for offering prayer and God's blessings.
--- NOTE | 2023-05-14 17:23 | NUR ---
fiber glass worker met with patient to discuss discharge planning. Patient expressed he lives alone in [place]. Patient expressed he has several brothers but the one he has been in contact with the most recently is Daniel P# [phone]. While speaking with patient, patient's daughter, Araceli Cui came to visit. Araceli expressed she could also be listed as a contact but does not live in [place], P# [phone]. Patient reports primary care physician is Dr. Farris and preferred pharmacy is [facility] in [place]. Patient denies any difficulty affording medications. Patient reports he does not have a DPOA-HC and does not wish to complete one today. Patient has a cane and CPAP machine at home. Patient reports he is independent with his ADLS. Patient would like to return home at time of discharge. Discharge Plan: Home
--- NOTE | 2023-05-14 18:12 | NUR ---
ATTEMPTED TO SLOW CBI DOWN THROUGHOUT SHIFT. URINE CONTINUALLY TURNED DARK, KEPT CBI RUNNING FAIRLY FAST. PATIENT GIVEN LEVSIN TO HELP WITH BLADDER SPASMS. PATIENT REPORTS LEVSIN HELPING.
--- NOTE | 2023-05-14 20:45 | NUR ---
PT A&O X4 LAYING IN BED WITH DAUGHTER AT BEDSIDE. VSS. C/O SOME BLADDER SPASMS- GIVEN PRN SEE MAR. CBI RUNNING AT MODERATE - FAST WITH DILLON RED OUTPUT. IVF INFUSING TO LEFT AC. FALL PRECAUTIONS IN PLACE & CALL LIGHT IN REACH. DENYING FURTHER NEEDS.
[2023-05-14] MEDS ORDERED: AMBIEN CR 12.12.5 MG PO (22:14)
[2023-05-15] VITALS (16 sets, daily range): BP systolic 92–122; BP diastolic 50–85; PULSE 60–62; TEMP 98–98.9
--- NOTE | 2023-05-15 06:23 | NUR ---
PT SLEPT IN BED THROUGHOUT THE SHIFT. CBI CONTINUES TO RUN FAST & IS HAVING PEACH COLORED OUTPUT NOW. REFUSED SCDS THROUGHOUT THE NIGHT - EDUCATION PROVIDED. PT RESTING IN BED W/ FALL PRECAUTIONS IN PLACE & CALL LIGHT IN REACH.
--- NOTE | 2023-05-15 09:25 | NUR ---
pt resting in bed, a&ox4 and finishing breakfast. vss and tele in place. pt denies pain. fluids infusing in left ac at 50ml/hr. blood sugar 152 this morning. cbi slowed down, pink urine output present with no clots. pt denies needs at this time. call light in reach.
[2023-05-15 09:42] LABS: INR 1.7 (0.8-3.0); PROTHROMBIN TIME 18.8 SECONDS (9.7-12.8)
--- NOTE | 2023-05-15 12:18 | NUR ---
pt reports feeling short of breath and "full of fluid in his chest." pt says he normally takes an extra "water pill" called metolazone when he feels like this at home. medication on hold. called Ramonita to update her, new orders to be placed and will update dr edgar.
--- NOTE | 2023-05-15 12:47 | NUR ---
updated Ramonita that pt is refusing chest xray
[2023-05-15] MEDS ORDERED: COUMADIN 1MG1 MG/TAB PO (12:49)
[2023-05-15] MEDS ORDERED: HUMALOG TE100 UNIT/1 SQ (13:09)
[2023-05-16 03:45] VITALS: BP 95/57; PULSE 59; TEMP 98.7
[2023-05-16 04:05] VITALS: BP_SYST 95
--- NOTE | 2023-05-16 05:30 | NUR ---
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 PT HAD A COUPLE OF ISSUES WITH HIS CBI RUNNING THIS SHIFT. THE FIRST TIME THERE WAS A SMALL CLOT BLOCKING THE FLOW. THE SECOND TIME, WE COULD NOT FIND A REASON IT HAD STOPPED FLOWING, HOWEVER, WE FLUSHED IT AND IT STARTED FLOWING AGAIN. PT COMPLAINED OF BLADDER SPASMS. LEVSIN GIVEN. PT FELT IT HELPED. PT DENIED CHEST PAIN, PALPITATIONS, SOB, N,V,D OR DIZZINESS. CALL LIGHT WITHIN REACH.
[2023-05-16 07:26] VITALS: BP 103/66; PULSE 67; TEMP 98.9
--- NOTE | 2023-05-16 07:55 | NUR ---
Shift assessment complete. Patient sleeping on arrival. VSS. A&Ox4. Tele in place HR 67 paced. CBI running no clots present urine pink in color, patient states no pian at this time. INT to right forearm, no redness, swelling, or drainage. Blood glucose this AM 157. Refusing breakfast due to not being hungry at this time. Patiet has no complaints or request at this time. Call light in reach.
--- NOTE | 2023-05-16 08:22 | NUR ---
[facility] urology in to see pt. clamping CBI, will monitor output for a couple of hours to evaluate if pt will dicharge with or without catheter.
--- NOTE | 2023-05-16 08:30 | NUR ---
pt resting in bed. denies pain this morning. catheter tubing with pink output. bs 157 requiring 4 units insulin per ss. INT to left ac. vss and tele in place. no needs at this time. call light in reach.
[2023-05-16 09:01] VITALS: BP_SYST 103
[2023-05-16 09:26] LABS: BASO # 0.1 K/mm3 (0.0-0.2); BASO % 0.6 % (0.0-2.0); EOS % 0.4 % (0.0-4.0); GRAN # 6.9 K/mm3 (1.4-6.5); GRAN % 72.4 % (42.2-75.2); HEMOGLOBIN 12.3 g/dl (13.5-18.0); LYMPH % 10.9 % (20.0-51.0); MEAN CELL VOLUME 92 fl (80.0-100.0); MEAN CORPUSCULAR HEMOGLOBIN 31 pg (27-31); MEAN CORPUSCULAR HGB CONC 34 g/dl (33.0-37.0); MEAN PLATELET VOLUME 10.9 fl (7.4-10.4); MONO # 1.4 K/mm3 (0.1-0.6); MONO % 14.9 % (1.7-9.3); PLATELET COUNT 119 K/mm3 (130-400); RED BLOOD COUNT 3.93 M/mm3 (4.20-5.60); REDCELL DISTRIBUTION WIDTH-CV 14.9 % (11.5-14.5)
--- NOTE | 2023-05-16 11:14 | NUR ---
INT REMOVED FROM LFT FOREARM. CATHETER ALL INTACT. PATIENT HANDELED WELL. ROBYN PRADHAN GIVING DISCHARGE INTRUCTIONS AT THIS TIME.
--- NOTE | 2023-05-16 11:50 | NUR ---
INT discontinued. leg bag and irrigation teaching provided. pt urine light pink. discharge instructions given to pt, all questions answered. urology office called pt to inform him of surgery scheduled for friday.
--- NOTE | 2023-05-16 12:05 | NUR ---
pt escorted to personal vehicle by wheelchair
== END 2023-05-16 12:05 | disposition home or self-care (01) ==
LOC: COL.ER 14:51 → SURG 20:00
PROVIDERS: Emergency Medicine; Internal Medicine; Nurse Practitioner; Physician Assistant; ADMIT Urology
DX: N32.89 Other specified disorders of bladder (principal); R31.0 Gross hematuria; G47.33 Obstructive sleep apnea (adult) (pediatric); E78.5 Hyperlipidemia, unspecified; I25.10 Atherosclerotic heart disease of native coronary artery without angina pectoris; I13.0 Hypertensive heart and chronic kidney disease with heart failure and stage 1 through stage 4 chronic kidney disease, or unspecified chronic kidney disease; I48.91 Unspecified atrial fibrillation; I50.20 Unspecified systolic (congestive) heart failure; I27.20 Pulmonary hypertension, unspecified; J44.9 Chronic obstructive pulmonary disease, unspecified; E11.22 Type 2 diabetes mellitus with diabetic chronic kidney disease; N18.9 Chronic kidney disease, unspecified; M10.9 Gout, unspecified; F17.210 Nicotine dependence, cigarettes, uncomplicated; Z99.81 Dependence on supplemental oxygen; Z95.5 Presence of coronary angioplasty implant and graft; Z79.01 Long term (current) use of anticoagulants; Z79.899 Other long term (current) drug therapy; Z79.4 Long term (current) use of insulin
CPT/HCPCS: A9270; G0378; J0330; J0690; J1100; J1170; J1815; J2405; J2765; J3010; J3480

== ENCOUNTER 2023-05-21 14:24 | Day surgery (SDC) | payer MEDICARE ==
[~2023-05-21] VITALS: Ht 180.3 cm; Wt 111.6 kg
[2023-05-21] VITALS (11 sets, daily range): BP systolic 89–165; BP diastolic 58–943; PULSE 59–95; TEMP 98.1–99.5
[~2023-05-21 14:24] MED LIST changes: +BASAGLAR K100 UNIT/1 SQ; +BETAPACE240 MG PO; +COUMADIN 1MG1 MG/TAB PO; +HUMALOG TE100 UNIT/1 SQ; +MULTI VITAMINS1 TAB PO; +VENTOLIN0.09 MG IH
[2023-05-22] VITALS (11 sets, daily range): BP systolic 94–117; BP diastolic 44–77; PULSE 55–78; TEMP 97.8–99
--- NOTE | 2023-05-22 00:02 | NUR ---
REPORT RECIEVED FROM PACU NURSE RONN. PT UP TO ROOM 323 AT 2000. PT A&O X4. PT AMBULATES IND WITH STEADY GAIT. IVF STILL RUNNING. CBI RUNNING MODERATELY WITH LIGHT PINK URINE NOTED. TENSION IS ON THE CBI PER DR CAMPO. PT DENIES PAIN OR DISCOMFORT. NO SKIN ISSUES NOTED. PT TOLERATED CLEAR LIQUIDS FINE, VERIFIED WITH AND ADVANCED DIET ORDER TO ADA. NO OTHER CONCERNS AT THIS TIME. CALL LIGHT IN PLACE. ALL NEEDS MET AT THIS TIME.
--- NOTE | 2023-05-22 01:33 | NUR ---
SHIFT ASSESSMENT COMPLETE, SEE DOCUMENTATION. PT CONTINUES WITH STEADY GAIT. PT DENIES PAIN. CALL LIGHT IN PLACE. ALL NEEDS MET AT THIS TIME.
[2023-05-22 06:19] LABS: HEMOGLOBIN 11.4 g/dl (13.5-18.0); MEAN CELL VOLUME 94 fl (80.0-100.0); MEAN CORPUSCULAR HEMOGLOBIN 32 pg (27-31); MEAN CORPUSCULAR HGB CONC 34 g/dl (33.0-37.0); MEAN PLATELET VOLUME 10.8 fl (7.4-10.4); PLATELET COUNT 140 K/mm3 (130-400); RED BLOOD COUNT 3.58 M/mm3 (4.20-5.60)
[2023-05-22 06:23] LABS: HEMATOCRIT 33.7 % (42.0-52.0)
[2023-05-22 06:29] LABS: CALCIUM 8.6 mg/dL (8.4-10.2); CREATININE, serum 1.59 mg/dL (0.72-1.25); POTASSIUM 4.5 mmol/L (3.5-4.5)
--- NOTE | 2023-05-22 07:57 | NUR ---
Pt awake in bed watching tv. Shift assessment completed. VSS. CBI to gravity in place and no clots noted with pink tinged drainage into catheter bag. Pt has complaints of pain, 02/17. Charge nurse Katy notified. LR infusing at 100 mL/hr into Rt forearm with no complications. IV in Rt forearm is patent with no drainage, redness or swelling. Pt ordered breakfast and has no further complaints. Call light within reach.
--- NOTE | 2023-05-22 10:09 | NUR ---
Pt doing okay. Pt was pretty grumpy at shift change, but has overall been doing/acting well. CBI has been running at slow rate, output is pink tinged, no clots seen
--- NOTE | 2023-05-22 10:56 | NUR ---
Pt has been refusing to use the call light when he has to go to the bathroom. Pt gets grouchy very easily and stated that he is steady on his feet and does not need us to follow him to the bathroom. Reminded him that he does have the alcantar and CBI that we did not want it pulled on. Pt just grumbled and stated he was fine
--- NOTE | 2023-05-22 11:00 | NUR ---
Report given to charge nurse Katy for end of student rotation. Pt is resting in bed awake. No acute changes at this time. VSS. Call light within reach.
--- NOTE | 2023-05-22 12:30 | NUR ---
Turned CBI off for approximately an hour. Output has remained clear. It did get a little darker, but pt was just up to have a bowel movement and did state that he did strain some. Did educate pt to try to not strain while having bowel movement. Padron catheter prime and pulled at this time.
--- NOTE | 2023-05-22 14:00 | NUR ---
Pt has voided x2. He has been drinkly plenty of water. 2nd output was slightly darker than the first.
--- NOTE | 2023-05-22 15:12 | NUR ---
BERONICA Student identified self as SW Student and completed Care Management assessment with patient at bedside. Patient stated that he lives alone in [place]. He reported that his PCP is Dr. Farris in [place]. His preferred pharmacy for discharge medication is [facility]. Patient reported that before hospitalization he was independent with ADLs and IADLs with the use of a CPAP at home. Patient reported that he currently does not have a DPOA-HC and is undecided if he would like to complete one. SW Student informed patient that a form could be provided if he would like one. Patient is covered by Medicare. Patient expressed that he is anticipating to go home when he is discharged. Discharge Plan: Home
--- NOTE | 2023-05-22 15:36 | NUR ---
Pt has voided again. Output again was just a little darker. Pt has drank adequate amount of water. Bladder scanned and got 201cc Pt denies any needs at this time
--- NOTE | 2023-05-22 18:38 | NUR ---
Pt has continued to do well. Ambulating independently. Pt is drinking plenty of fluids and output is adequate
[2023-05-23 00:07] VITALS: BP 111/60; PULSE 64; TEMP 98.3
[2023-05-23 03:39] VITALS: BP 118/62; PULSE 90; TEMP 99.7
--- NOTE | 2023-05-23 06:09 | NUR ---
pt up and ambulating in room and lopez w/o assistance required. no pain reported. urine remains red colored, but hedge fund principal this am. no clots present. RFA INT patent/secure.
[2023-05-23 07:08] VITALS: BP 106/66; PULSE 60; TEMP 98.1
--- NOTE | 2023-05-23 07:13 | NUR ---
Pt awake in bed and in pleasant mood. Shift assessment completed. VSS. Pt has complaints of minimal pain, 3/10. Pt states denies need for pain treatment at this time. Pt ambulated to bathroom and voided pink tinged urine. This student nurse educated patient to drink plenty of fluids to help with urine color. Pt has no other complaints at this time. Call light within reach.
[2023-05-23 08:50] VITALS: BP_SYST 106
--- NOTE | 2023-05-23 09:00 | NUR ---
Pt doing well this morning. He continues to void without difficulty. Output has remained clear of clots. No needs, will continue to monitor. I agree with assessment as charted per Glory [facility] student
--- NOTE | 2023-05-23 10:57 | NUR ---
Pt is resting in bed at this time. Pt ambulated and walked the hallway multiple times this morning. Pt is voiding and urine color is yellowish color with some pink tinge, pt encouraged to continue fluids. VSS. Pt has no further complaints at this time. Report given to ROBYN Burns for end of student clinical rotation. Call light within reach.
[2023-05-23 11:00] VITALS: BP 107/65; PULSE 59; TEMP 98.4
--- NOTE | 2023-05-23 12:31 | NUR ---
Initial visit: Slot Floorperson stopped by room on rounds. Pt was resting and content. Pt has no needs right now. Slot Floorperson will follow up as needed.
[2023-05-23 13:11] VITALS: BP_SYST 107
--- NOTE | 2023-05-23 14:30 | NUR ---
Reviewed discharge instructions with pt. INT removed from right forearm. Pt did call his ride. Informed him to notify nursing when his ride is here and we would escort him down
--- NOTE | 2023-05-23 14:50 | NUR ---
Pt escorted out at this time
== END 2023-05-23 14:50 | disposition home or self-care (01) ==
LOC: SDCO 14:24 → SURG 19:54 → SDCO 05-23 14:50
PROVIDERS: Urology
DX: N40.1 Benign prostatic hyperplasia with lower urinary tract symptoms (principal); R31.0 Gross hematuria; R33.8 Other retention of urine; G47.33 Obstructive sleep apnea (adult) (pediatric); J44.9 Chronic obstructive pulmonary disease, unspecified; E11.9 Type 2 diabetes mellitus without complications; I48.0 Paroxysmal atrial fibrillation; I11.0 Hypertensive heart disease with heart failure; I50.22 Chronic systolic (congestive) heart failure; I25.10 Atherosclerotic heart disease of native coronary artery without angina pectoris; Z99.81 Dependence on supplemental oxygen; Z79.4 Long term (current) use of insulin; Z98.890 Other specified postprocedural states; Z79.899 Other long term (current) drug therapy; Z79.01 Long term (current) use of anticoagulants
CPT/HCPCS: OP; J0690; J1100; J1815; J2405; J2704; J3010; J7120